=== PATIENT | male | born 1970 | race Caucasian/White ===

== ENCOUNTER 2017-03-17 18:19 | Emergency (ER) | payer OTHER ==
[~2017-03-17] VITALS: Ht 170.2 cm; Wt 80.0 kg
[2017-03-17 18:27] VITALS: Ht 170.2 cm; Wt 80.0 kg
--- NOTE | 2017-03-17 19:08 | RADRPT ---
PROCEDURE: CT Brain without contrast. CLINICAL INDICATION: altered TECHNIQUE: A CT of the brain was performed on a [employer] 64-slice CT scanner utilizing axial imaging from the skull base through the vertex without IV contrast. Multiplanar reformatted images were made. Images were reviewed on a PACS workstation. The CTDIvol is 43.4 mGy and the DLP is 720 mGycm. COMPARISON: September 17, 2016 FINDINGS: There is no intracranial hemorrhage, mass effect, or midline shift. No extra-axial fluid collection is seen. The ventricles and sulci are normal in size and configuration. The density of the brain is normal, and the ott white matter differentiation appears well-preserved. The visualized paranasal sinuses and osseous structures are grossly unremarkable. IMPRESSION: 1. No evidence of acute intracranial pathology. 2. The brain is normal in appearance. Physician Jerry Date Time Electronically viewed and signed by Physician Jerry on 03/17/2017 19:08 ML/
--- NOTE | 2017-03-17 19:52 | ERD ---
ER Documentation Chief Complaint Date/Time DATE: 03/17/17 TIME: 19:49 Chief Complaint alcohol intoxication- bib LAFD/LAPD for tresspassing HPI Patient is a 47-year-old male who presents with alcohol intoxication. Please note the history and physical exam is limited at this time. The patient was brought in by ambulance and admits to drinking alcohol. He was in front of the [employer] and a bystander called 911 because he was trespassing. Police then called paramedics to bring him to the emergency department. He has no complaints at this time. Upon review of old medical records this is the patient 's third visit to the ER since 2012. ROS All systems reviewed and are negative except as per history of present illness. Medications Home Meds Unable to Obtain Active Prescriptions or Reported Meds Allergies Allergies: Coded Allergies: No Known Allergy (Unverified , 09/17/16) PMhx/Soc Medical and Surgical Hx: Unable to obtain History of Surgery: No Anesthesia Reaction: No Hx Neurological Disorder: No Hx Respiratory Disorders: No Hx Cardiac Disorders: No Hx Miscellaneous Medical Probl: No Hx Alcohol Use: Yes Hx Substance Use: No Hx Tobacco Use: No Smoking Status: Never smoker FmHx Unable to obtain Physical Exam Vitals Vital Signs Date Time Temp Pulse Resp B/P Pulse Ox O2 Delivery O2 Flow Rate FiO2 03/17/17 18:27 98.2 92 18 132/81 100 Physical Exam Const: Altered and intoxicated Head: Atraumatic Eyes: Normal Conjunctiva ENT: Normal External Ears, Nose and Mouth. Neck: Full range of motion..~ No meningismus. Resp: Clear to auscultation bilaterally Cardio: Regular rate and rhythm, no murmurs Abd: Soft, non tender, non distended. Normal bowel sounds Skin: No petechiae or rashes Back: No midline or flank tenderness Ext: No cyanosis, or edema Neur: Awake but intoxicated Results 24 hrs Laboratory Tests Test 03/17/17 18:36 Bedside Glucose 100mg/dL Procedures/MDM CT brain negative per radiology. Accu-Chek is normal. Patient is a 47-year-old male with previous visits for alcohol intoxication who presents with alcohol intoxication. The patient has no intracranial hemorrhage or mass. The patient has no hypoglycemia or hyperglycemia. Once the patient is clinically sober he will be discharged and can follow-up with the local clinics. He should not drink alcohol to excess in the future. Departure Diagnosis: Primary Impression: Alcoholic intoxication Complication of substance-induced condition: uncomplicated Qualified Code: F10.120 - Alcoholic intoxication, uncomplicated Condition: Fair Patient Instructions: Alcohol Intoxication Referrals: OLGA LIDIA CARVAJAL MD (PCP) Additional Instructions: Llame al doctor MAANA y rosey mitchel YAHIR PARA DENTRO DE 1-2 RAMAN.Dgale a la secretaria que nosotros le instruimos hacer esta yahir.Avise o llame si hammond condicin se empeora antes de la yahir. Regresa aqui si peor o no mejor. JACK LAWTON MD March 17, 2017 19:52
[2017-03-18 04:36] VITALS: BP 121/96; PULSE 84; RESP 15; TEMP 98
== END 2017-03-18 04:44 | disposition home or self-care (01) ==
LOC: E/R 18:19
DX: F10.120 Alcohol abuse with intoxication, uncomplicated (principal); R41.82 Altered mental status, unspecified
CPT/HCPCS: 70450; 82962; Z7502

== ENCOUNTER 2017-08-04 11:59 | Emergency (ER) | payer OTHER ==
[~2017-08-04] VITALS: Ht 157.5 cm; Wt 77.5 kg
[2017-08-04 12:05] VITALS: Ht 157.5 cm; Wt 77.5 kg
[2017-08-04] MEDS ORDERED: IBUP-1542 PO (13:25)
[2017-08-04] MEDS ORDERED: OFLO5DRO7 BOTH EARS (13:25)
--- NOTE | 2017-08-04 13:27 | ERD ---
ER Documentation Chief Complaint Date/Time DATE: 08/04/17 TIME: 13:26 Chief Complaint bilateral ear pain ( had ear surgery 2 years ago) HPI 47-year-old male presents with a history of chronic TM perforation with a history of tympanoplasty which is failed. He has a history of bilateral ear pain and discharge. Usually takes unspecified drops and medicine for pain. He has been treated at [facility] for his condition. Denies fevers, vomiting , shortness breath or chest pain. ROS All systems reviewed and are negative except as per history of present illness. Medications Home Meds Active Scripts Ibuprofen* (Motrin*) 600 Mg Tab, 600 MG PO Q6, #20 TAB Prov:GEOFFREY HEMPHILL MD 08/04/17 Ofloxacin Otic (Ofloxacin Otic) 5 Ml Drops, 5 DROP BOTH EARS BID for 10 Days, # 1 BOTTLE Prov:GEOFFREY HEMPHILL MD 08/04/17 Allergies Allergies: Coded Allergies: No Known Allergy (Unverified , 09/17/16) PMhx/Soc Medical and Surgical Hx: pt denies Surgical Hx History of Surgery: Yes (left ear sx x2 years ago) Anesthesia Reaction: No Hx Neurological Disorder: No Hx Respiratory Disorders: No Hx Cardiac Disorders: No Hx Miscellaneous Medical Probl: No Hx Alcohol Use: Yes (socially) Hx Substance Use: No Hx Tobacco Use: No Smoking Status: Never smoker Physical Exam Vitals Vital Signs Date Time Temp Pulse Resp B/P Pulse Ox O2 Delivery O2 Flow Rate FiO2 08/04/17 12:05 98.5 69 18 115/61 97 Physical Exam Const: [], Dly-[id number]-ukmrsunul. Head: Atraumatic Eyes: Normal Conjunctiva ENT: Normal External Ears, Nose and Mouth. Little slight temperature of with slight discharge. No mastoid tenderness. No pain with passive range of motion of the external ears Neck: Full range of motion..~ No meningismus. Resp: Clear to auscultation bilaterally Cardio: Regular rate and rhythm, no murmurs Abd: Soft, non tender, non distended. Normal bowel sounds Skin: No petechiae or rashes Back: No midline or flank tenderness Ext: No cyanosis, or edema Neur: Awake and alert Psych: Normal Mood and Affect Procedures/MDM Zentz with acute on chronic signs of otitis media with chronic perforation. We will treat with ofloxacin ibuprofen, primary care follow-up and return precautions. The patient was stable with no new complaints during the ER course. Clinically, there is no current evidence to suggest meningitis, sepsis, acute abdomen, pneumonia, acute coronary syndrome, pulmonary embolism, or any other emergent condition appearing to require further evaluation or hospitalization. The patient should certainly return for any new or worsening symptoms per the aftercare instructions. They should otherwise follow-up with her primary care doctor for reevaluation this week. Departure Diagnosis: Primary Impression: Ear problem Condition: Stable Patient Instructions: Ruptured Tm, Infected (Adult) [facility]errals[facility] Usted se chaidez hecho un examen mdico de control que le indica que no est en mitchel condicin que requiera tratamiento urgente en el Departamento de Emergencia. Un estudio ms profundo y el tratamiento de hammond condicin pueden esperar sin ningn riesgo hasta que usted sea atendida/o en el consultorio de hammond mdico o mitchel cl melvi. Es responsabilidad suya arreglar mitchel yanni para el seguimiento del kiko. MANEJO DE CONDICIONES NO URGENTES EN EL FUTURO 1) Si usted tiene un mdico de atencin primaria: Usted debera llamar a hammond mdico de atencin primaria antes de venir al departamento de emergencia. Despus de las horas de consultorio, hammond doctor o hammond asociado/a est disponible por telfono. El mdico o enfermero de clarisse en el servicio telefnico puede asesorarle por efren medio para atender el problema, o kiko contrario se puede programar mitchel yanni. 2) Si usted no tiene un mdico de atencin primaria: Llame al mdico o clnica de referencia que aparece abajo j carlos las horas de consultorio para hacer mitchel yanni para que le vean. CLINICAS: [facility] 107 [phone] [address] [facility] 922 [phone] [address] [facility] [phone] [facility] 024 [phone] [address] [facility] 008 [phone] [address] [facility]. [phone] [address] Additional Instructions: Cheque otro vez con hammond doctor primario en el proximo ng or regresa para mas o nueva simptomas. GEOFFREY HEMPHILL MD Aug 04, 2017 13:27
== END 2017-08-04 13:50 | disposition home or self-care (01) ==
LOC: FTE 11:59
DX: H92.03 Otalgia, bilateral (principal)
CPT/HCPCS: 99283

== ENCOUNTER 2018-05-12 15:40 | Emergency (ER) | END 2018-05-12 17:53 | disposition home or self-care (01) ==

== ENCOUNTER 2018-06-14 13:15 | Emergency (ER) | END 2018-06-14 15:47 | disposition home or self-care (01) ==

== ENCOUNTER 2018-08-24 13:18 | Emergency (ER) | END 2018-08-24 15:05 | disposition home or self-care (01) ==

== ENCOUNTER 2018-09-21 13:33 | Emergency (ER) | END 2018-09-21 16:53 | disposition home or self-care (01) ==

== ENCOUNTER 2018-12-06 16:01 | Emergency (ER) | payer OTHER ==
[~2018-12-06] VITALS: Ht 165.1 cm; Wt 70.0 kg
[~2018-12-06 16:01] MED LIST: AMOX500C2 PO; AMOX500T PO; IBUP-1542 PO; OFLO5DRO46 LEFT EYE; OFLO5DRO7 BOTH EARS
[2018-12-06 16:06] VITALS: Ht 165.1 cm; Wt 70.0 kg
--- NOTE | 2018-12-06 16:32 | ERD ---
ER Documentation Chief Complaint Chief Complaint BIB 890 FOR EVAL OF ETOH. HPI The patient is a 48-year-old male, presenting to the ER because of acute mechanical fall from the street. He has facial abrasion and is agitated in the ER, unable to provide significant history; the history is obtained from the assurance senior manager insurance. Past medical/surgical history/social history/review of system: Unable to obtain due to his condition Medications Home Meds Discontinued Scripts Ofloxacin* (Ocuflox*) 0.3%-5 Ml Ophth Drops, 1 DROP LEFT EYE QID, #1 BOTTLE Prov:MARY ANNE VILLALOBOS PA-C 09/21/18 Ofloxacin* (Ocuflox*) 0.3%-5 Ml Ophth Drops, 1 DROP LEFT EYE QID, #1 BOTTLE Prov:BRENDA PATEL MD 08/24/18 Amoxicillin* (Amoxicillin*) 500 Mg Cap, 500 MG PO TID for 10 Days, CAP Prov:BRENDA PATEL MD 08/24/18 Ofloxacin* (Ocuflox*) 0.3%-5 Ml Ophth Drops, 1 DROP LEFT EYE QID for 10 Days, #1 BOTTLE Prov:GLYNN BORDEN DO 06/14/18 Amoxicillin Trihydrate (Amoxicillin) 500 Mg Tablet, 500 MG PO BID for 10 Days, #20 TAB Prov:GLYNN BORDEN DO 06/14/18 Amoxicillin* (Amoxicillin*) 500 Mg Cap, 500 MG PO TID for 10 Days, #30 CAP Prov:BRENDA PATEL MD 05/12/18 Ibuprofen* (Motrin*) 600 Mg Tab, 600 MG PO Q6, #20 TAB Prov:GEOFFREY HEMPHILL MD 08/04/17 Ofloxacin Otic (Ofloxacin Otic) 5 Ml Drops, 5 DROP BOTH EARS BID for 10 Days, #1 BOTTLE Prov:GEOFFREY HEMPHILL MD 08/04/17 Allergies Allergies: Coded Allergies: No Known Allergy (Unverified , 12/06/18) PMhx/Soc History of Surgery: Yes (left ear sx x2 years ago, L eye sx) Anesthesia Reaction: No Hx Neurological Disorder: No Hx Respiratory Disorders: No Hx Cardiac Disorders: No Hx Miscellaneous Medical Probl: No Hx Alcohol Use: Yes (socially) Hx Substance Use: No Hx Tobacco Use: No Physical Exam Vitals Vital Signs Date Temp Pulse Resp B/P (MAP) Pulse Ox O2 O2 Flow FiO2 Time Delivery Rate 12/06/18 93 20 139/85 99 Nasal 2.0 21:35 (103) Cannula 12/06/18 94 18 143/93 100 Nasal 2.0 21:34 (110) Cannula 12/06/18 98.2 85 16 125/82 99 16:06 (96) Physical Exam Const: No acute distress. Head: Atraumatic. Eyes: Normal Conjunctiva. ENT: Normal External Ears, Nose and Mouth. Neck: Full range of motion. No meningismus. Resp: Clear to auscultation bilaterally. Cardio: Regular rate and rhythm. Abd: Soft, non distended, normal bowel sounds, non tender. Skin: No petechiae or rashes. Back: No midline or flank tenderness. Ext: No cyanosis, or edema. Neur: Awake and alert. No focal deficit Psych: Unable to obtain due to his condition Results 24 hrs Laboratory Tests Test 12/06/18 16:46 Bedside Glucose 107 mg/dL Current Medications Medications Dose Sig/Joseph Start Time Status Last (Trade) Ordered Route PRN Stop Time Admin Dose Reason Admin Lorazepam 2 mg ONCE ONCE 12/06/18 DC 12/06/18 (Ativan) PO 17:30 17:33 12/06/18 17:31 Procedures/[place] [id number] Radiology Main Line: [phone] DIAGNOSTIC IMAGING REPORT Patient: PEGGY MAS : 1970 Age: 48 Sex: M MR #: [id number] DOS: 12/06/18 1705 Ordering MD: GLYNN NGUYỄN MD Location: E/R Room/Bed: PROCEDURE: CT Brain without contrast. CLINICAL INDICATION: EtOH, altered level of consciousness. TECHNIQUE: A CT of the brain was performed utilizing axial sections from the skull base through the vertex without contrast. Multiplanar re-formations were generated. DICOM images are available. Images were reviewed on a high-resolution PACS workstation. CTDIvol: 38.70 mGy. DLP: 634.23 mGy-cm. One or more of the following dose reduction techniques were used: - Automated exposure control. - Adjustment of the mA and/or kV according to patient size. - Use of iterative reconstruction technique. COMPARISON: 03/17/2017 FINDINGS: There is no cerebral volume loss. No hydrocephalus is seen. There is no mass effect. No acute intracranial hemorrhage is identified. There is no extra-axial collection. Horn-white matter differentiation is preserved. There is no significant mucosal disease in the paranasal sinuses. The visualized mastoid air cells are clear. The ossesous structures are unremarkable. The extracranial soft tissues are unremarkable. IMPRESSION: No acute intracranial pathology. RPTAT: HTAR .Orion Gomez MD, MD Date Time Electronically viewed and signed by .Orion Gomez MD, MD on 12/06/2018 19:02 .R/ CC: GLYNN NGUYỄN MD [id number] [place] [id number] Radiology Main Line: [phone] DIAGNOSTIC IMAGING REPORT Patient: PEGGY MAS : 1970 Age: 48 Sex: M MR #: [id number] DOS: 12/06/18 1705 Ordering MD: GLYNN NGUYỄN MD Location: E/R Room/Bed: PROCEDURE: XR Chest. CLINICAL INDICATION: Altered level of consciousness . Dyspnea TECHNIQUE: Single frontal chest x-ray. COMPARISON: CR CHEST 09/17/2016 FINDINGS: The lungs are clear of acute infiltrates, edema, effusions, or masses. There are low lung volumes with hilar vascular crowding.. The cardiomediastinal silhouette is unremarkable. Calcific atherosclerosis of the aorta is present. The osseous structures are intact. There is an old healed fracture of the right distal clavicle. IMPRESSION: No acute cardiopulmonary disease. RPTAT: GG .Samir Harvey MD, MD Date Time Electronically viewed and signed by .Samir Harvey MD, MD on 12/06/2018 17:50 .L/ CC: GLYNN NGUYỄN MD [id number] MEDICAL MAKING DECISION: The patient is a 48-year-old male, presenting with acute alcohol abuse, Accu-Chek was 105. He was treated with Ativan 2 mg p.o. with good response, he is resting comfortably The differential diagnoses considered include but are not limited to alcohol intoxication, alcohol abuse, psychiatric illness, dehydration Departure Diagnosis: Primary Impression: ETOH abuse Condition: Stable Comments The patient's blood pressure was elevated (>120/80) but appears stable without evidence of hypertension emergency or urgency. The patient was counseled about the risks of hypertension and urged to pursue outpatient monitoring and therapy within a week with their primary care physician. I discussed the findings with the patient. I advised the patient to follow-up with the primary physician in about 2-3 days, sooner if needed and return if any concern. Disclaimer: Inadvertent spelling and grammatical errors are likely due to EHR/dictation software use and do not reflect on the overall quality of patient care. Also, please note that the electronic time recorded on this note does not necessarily reflect the actual time of the patient encounter. He will be discharged when he momo, able to ambulate independently GLYNN NGUYỄN MD Dec 06, 2018 16:32
[2018-12-06] MEDS ORDERED: LORAZEPAM 1 MG TAB PO ONE (17:30)
[2018-12-07 11:25] VITALS: BP 122/74; PULSE 87; RESP 18
== END 2018-12-07 11:27 | disposition home or self-care (01) ==
LOC: E/R 16:01
DX: F10.129 Alcohol abuse with intoxication, unspecified (principal); R41.82 Altered mental status, unspecified
CPT/HCPCS: 70450; 71045; 82962; Z7502; Z7610